=== PATIENT | female | born 1985 | race Caucasian/White ===

== ENCOUNTER 2021-05-25 12:12 | Emergency (ER) | payer OTHER ==
[2021-05-25 13:52] LABS: BILIRUBIN NEGATIVE (NEGATIVE); BLOOD NEGATIVE Ery/uL (NEGATIVE); CLARITY CLEAR (CLEAR); COLOR YELLOW (YELLOW); GLUCOSE (U) NORMAL (NORMAL); LEUKOCYTES NEGATIVE Leu/uL (NEGATIVE); NITRITE NEGATIVE (NEGATIVE); PROTEIN TRACE (LOW) mg/dL (NEGATIVE); SPECIFIC GRAVITY 1.015 (1.001-1.030); UROBILINOGEN 0.2 mg/dL (0.2-1.0); pH 7.5 (5.0-9.0)
[2021-05-25 13:56] LABS: AMORPHOUS PHOSPHATE CRYSTALS MODERATE; BACTERIA TRACE; TRANSITIONAL EPITHELIAL CELLS RARE
[2021-05-25 14:46] LABS: BASOPHIL 0.9 % (0-2); EOSINOPHIL 0.2 % (0-5); HCT 40.9 % (37.0-47.0); HGB 13.5 g/dl (12.5-16.0); LYMPHOCYTE 17.9 % (15-48); MCH 31.2 pg (25.0-31.0); MCV 94.5 fL (78.0-100.0); MONOCYTE 4.2 % (0-12); MPV 12.7 fL (6.0-9.5); NEUTROPHIL 76.4 % (41-80); NRBC 0; PLT 161 K/uL (150-400); RBC 4.33 M/uL (4.20-5.40); RDW 12.3 % (11.5-14.0); WBC 8.1 K/uL (4.0-10.5)
[2021-05-25 15:13] LABS: ALBUMIN 4.3 g/dL (3.4-5.0); BILIRUBIN - TOTAL 0.6 mg/dL (0.2-1.0); BUN/CREAT RATIO (CALC) 10.9 RATIO; CREATININE 0.92 mg/dL (0.51-0.95); GLOBULIN (CALCULATION) 2.8 g/dL; POTASSIUM 4.4 mmol/L (3.5-5.1); TOTAL PROTEIN 7.1 g/dL (6.4-8.2)
[2021-05-25] MEDS ORDERED: BACLOFEN 10MG T10 MG PO (16:35)
== END 2021-05-25 16:50 | disposition home or self-care (01) ==
LOC: FER 12:12
PROVIDERS: Nurse Practitioner Family
DX: G43.909 Migraine, unspecified, not intractable, without status migrainosus (principal); R10.31 Right lower quadrant pain; R10.32 Left lower quadrant pain; M79.10 Myalgia, unspecified site; E86.0 Dehydration; Z88.0 Allergy status to penicillin
CPT/HCPCS: 36415; 80053; 81001; 85025; J1100; J1200; J2405; J7030

== ENCOUNTER 2021-06-29 10:21 | Emergency (ER) | payer OTHER ==
[~2021-06-29 10:21] MED LIST: BACLOFEN 10MG T10 MG PO
== END 2021-06-29 12:22 | disposition home or self-care (01) ==
LOC: FER 10:21
DX: G43.909 Migraine, unspecified, not intractable, without status migrainosus (principal); Z88.0 Allergy status to penicillin
CPT/HCPCS: J1200; J2405; J2765